=== PATIENT | male | born 1980 | race Caucasian/White ===

== ENCOUNTER 2016-06-03 17:20 | Emergency (ER) | payer BC, OTHER ==
--- NOTE | 2016-06-03 17:29 | ER Document Report ---
ED Medical Screen (RME) - General Stated Complaint: BILATERAL FEET PAIN Notes: Patient complains of rash to both feet for about 2 weeks. Has been told it is athletes feet, and someone else told him it's fire ant bites. Rash is painful. Has tried [id number] athlete's foot spray and powders. I have greeted and performed a rapid initial assessment of this patient. A comprehensive ED assessment and evaluation of the patient, analysis of test results and completion of the medical decision making process will be conducted by additional ED providers. TRAVEL OUTSIDE OF THE [place] IN LAST 30 DAYS: No - Related Data Allergies/Adverse Reactions: cephalexin monohydrate [From [employer]] Allergy (Unknown, Verified 12/19/15 17:00) acetaminophen [From [employer]] Allergy (Verified 12/19/15 17:00) chlorpheniramine [From [employer]] Allergy (Verified 12/19/15 17:00) dextromethorphan HBr [From [employer]] Allergy (Verified 12/19/15 17: 00) Past Medical History Pulmonary Medical History: Reports: Hx Bronchitis Denies: Hx Asthma, Hx Pneumonia - Immunizations Immunizations up to date: Yes Hx Diphtheria, Pertussis, Tetanus Vaccination: Yes - unk date Physical Exam - Vital signs Vitals: Temp Pulse Resp BP Pulse Ox 99.0 F 89 20 137/75 H 95 06/03/16 17:25 06/03/16 17:25 06/03/16 17:25 06/03/16 17:25 06/03/16 17:25 - Skin Notes: Patient showed pictures of rash which is red and scabbed. Slight edema apparent. Course - Vital Signs Vital signs: Temp Pulse Resp BP Pulse Ox 99.0 F 89 20 137/75 H 95 06/03/16 17:25 06/03/16 17:25 06/03/16 17:25 06/03/16 17:25 06/03/16 17:25
[2016-06-03] MEDS ORDERED: MUPIROCIN 2% OINTMENT 22 GM TP ONE (20:01)
--- NOTE | 2016-06-03 20:07 | ER Document Report ---
ED General - General Chief Complaint: Skin Problem Stated Complaint: BILATERAL FEET PAIN Notes: Patient is a 36-year-old male who presents with abrasions over the dorsal surface of his left foot. States he wears boots and that they rub on his feet but he became concerned when he began to have increasing pain to this area as well as some purulent drainage and spreading redness. He has not had any constitutional symptoms. Denies any fever. He has not seen his primary care doctor regarding today's concerns. He does describe the discomfort there is a dull, constant, burning pain. Nothing improves or worsens that pain. He denies any history of similar symptoms in the past TRAVEL OUTSIDE OF THE [place] IN LAST 30 DAYS: No - Related Data Allergies/Adverse Reactions: cephalexin monohydrate [From [employer]] Allergy (Unknown, Verified 06/03/16 17:26) acetaminophen [From [employer]] Allergy (Verified 06/03/16 17:26) chlorpheniramine [From [employer]] Allergy (Verified 06/03/16 17:26) dextromethorphan HBr [From [employer]] Allergy (Verified 06/03/16 17: 26) Past Medical History - General Information source: Patient - Social History Smoking Status: Never Smoker Chew tobacco use (# tins/day): No Frequency of alcohol use: None Drug Abuse: None Lives with: Family Family History: Arthritis, CAD, CVA, DM, Hyperlipidemia, Hypertension, Malignancy Patient has suicidal ideation: No Patient has homicidal ideation: No Pulmonary Medical History: Reports: Hx Bronchitis Denies: Hx Asthma, Hx Pneumonia Renal/ Medical History: Denies: Hx Peritoneal Dialysis - Immunizations Immunizations up to date: Yes Hx Diphtheria, Pertussis, Tetanus Vaccination: Yes - unk date Review of Systems - Review of Systems Notes: Constitutional: Negative for fever. HENT: Negative for sore throat. Eyes: Negative for visual changes. Cardiovascular: Negative for chest pain. Respiratory: Negative for shortness of breath. Gastrointestinal: Negative for abdominal pain, vomiting or diarrhea. Genitourinary: Negative for dysuria. Musculoskeletal: Negative for back pain. Skin: Positive for rash. Neurological: Negative for headaches, weakness or numbness. 10 point ROS negative except as marked above and in HPI. Physical Exam - Vital signs Vitals: Temp Pulse Resp BP Pulse Ox 99.0 F 89 20 137/75 H 95 06/03/16 17:25 06/03/16 17:25 06/03/16 17:25 06/03/16 17:25 06/03/16 17:25 Interpretation: Normal Notes: PHYSICAL EXAMINATION: GENERAL: Well-appearing, well-nourished and in no acute distress. HEAD: Atraumatic, normocephalic. EYES: sclera anicteric, conjunctiva are normal. ENT: Moist mucous membranes. NECK: Normal range of motion LUNGS: Normal work of breathing HEART: 2+ DP pulses bilaterally EXTREMITIES: no pitting or edema. No cyanosis. NEUROLOGICAL: No focal neurological deficits. Moves all extremities spontaneously and on command. PSYCH: Normal mood, normal affect. SKIN: Warm, Dry, normal turgor, superficial abrasions over the distal dorsal surface of the left foot with some mild surrounding erythema and crusting lesions. Course - Re-evaluation Re-evalutation: 06/03/16 20:02 Patient presents with skin abrasions over the dorsal surface just below the great toe and second toe. There appears to be a superimposed impetigo over this area. Patient will be started on mupirocin. Hygiene recommendations provided. At this time will discharge with return precautions and follow-up recommendations. Verbal discharge instructions given a the bedside and opportunity for questions given. Medication warnings reviewed. Patient is in agreement with this plan and has verbalized understanding of return precautions and the need for primary care follow-up in the next 24-72 hours. - Vital Signs Vital signs: Temp Pulse Resp BP Pulse Ox 98.5 F 77 17 125/75 99 06/03/16 20:10 06/03/16 20:10 06/03/16 20:10 06/03/16 20:10 06/03/16 20:10 Discharge - Discharge Clinical Impression: Impetigo Abrasion, left foot, initial encounter Qualifiers: Encounter type: initial encounter Qualified Code(s): S90.812A - Abrasion, left foot, initial encounter Condition: Good Disposition: HOME, SELF-CARE Additional Instructions: The rash is likely due to infection of your skin. You need to take the antibiotics as prescribed. Do not stop even if the rash goes away until you have completed all the antibiotics. Please return if you devlop spreading of the area of infection. You should also return if you develop fevers with temperature greater than 101, persistent vomiting, worsening pain, or have any other symptoms that are concerning to you. Prescriptions: Mupirocin 22 gm TP TID #22 oint..gm.
[2016-06-03 20:18] VITALS: BP 125/75
== END 2016-06-03 20:12 | disposition home or self-care (01) ==
LOC: ER 17:20
DX: S90.812A Abrasion, left foot, initial encounter (principal); L01.00 Impetigo, unspecified; X58.XXXA Exposure to other specified factors, initial encounter
CPT/HCPCS: 99283; J3490

== ENCOUNTER 2016-06-28 19:33 | Emergency (ER) | payer BC, OTHER ==
[2016-06-28 19:53] VITALS: BP 130/81
== END 2016-06-29 01:10 | disposition left against medical advice (07) ==
LOC: ER 19:33
DX: Z53.21 Procedure and treatment not carried out due to patient leaving prior to being seen by health care provider (principal)

== ENCOUNTER 2016-07-01 08:22 | Emergency (ER) | payer BC, OTHER ==
[2016-07-01] MEDS ORDERED: IBUPROFEN 800 MG TABLET PO ONE (08:49)
[2016-07-01] MEDS ORDERED: CLINDAMYCIN HCL 150 MG CAPSULE PO ONE (08:49)
--- NOTE | 2016-07-01 08:54 | ER Document Report ---
HPI - HPI Patient complains to provider of: dental pain Onset: Yesterday Onset/Duration: Gradual Quality of pain: Achy Pain Level: 5 Context: Patient reports mild cough for the past 6 days with a dental pain that started yesterday. Patient reports right-sided facial swelling that started today. No fever. Associated Symptoms: Nonproductive cough, Other - Dental pain. denies: Fever, Nausea, Sore throat Exacerbated by: Denies Relieved by: Denies Similar symptoms previously: Yes Recently seen / treated by doctor: No - ROS ROS below otherwise negative: Yes Systems Reviewed and Negative: Yes All other systems reviewed and negative - CONSTITUTIONAL Constitutional: DENIES: Fever - EENT EENT: DENIES: Sore Throat, Nasal Drainage-Clear Notes: Dental pain, facial swelling - CARDIOVASCULAR Cardiovascular: DENIES: Chest pain - RESPIRATORY Respiratory: REPORTS: Coughing. DENIES: Trouble Breathing - GASTROINTESTINAL Gastrointestinal: DENIES: Abdominal Pain, Nausea, Patient vomiting, Diarrhea - REPRODUCTIVE Reproductive: DENIES: : - MUSCULOSKELETAL Musculoskeletal: DENIES: Back Pain - DERM Skin Color: Normal Skin Problems: None Past Medical History - General Information source: Patient - Social History Smoking Status: Current Every Day Smoker Frequency of alcohol use: None Drug Abuse: None Occupation: garbage removal Lives with: Family Family History: Arthritis, CAD, CVA, DM, Hyperlipidemia, Hypertension, Malignancy Patient has suicidal ideation: No Patient has homicidal ideation: No - Medical History Medical History: Negative Pulmonary Medical History: Reports: Hx Bronchitis Denies: Hx Asthma, Hx Pneumonia Renal/ Medical History: Denies: Hx Peritoneal Dialysis Surgical Hx: Negative - Immunizations Immunizations up to date: Yes Hx Diphtheria, Pertussis, Tetanus Vaccination: Yes - unk date Vertical Provider Document - CONSTITUTIONAL Agree With Documented VS: Yes Exam Limitations: No Limitations General Appearance: WD/WN, No Apparent Distress - INFECTION CONTROL TRAVEL OUTSIDE OF THE [place] IN LAST 30 DAYS: No - HEENT HEENT: Atraumatic, Normocephalic. negative: Pharyngeal Exudate, Pharyngeal Tenderness, Pharyngeal Erythema, Tympanic Membrane Red, Tympanic Membrane Bulging Mouth Diagram: 1 - Widespread dental decay 2 - Tooth loose, and tender Notes: Subtle swelling to the right cheek area - NECK Neck: Normal Inspection, Supple - RESPIRATORY Respiratory: Breath Sounds Normal, No Respiratory Distress. negative: Rales, Rhonchi, Wheezing O2 Sat by Pulse Oximetry: 98 - CARDIOVASCULAR Cardiovascular: Regular Rate, Regular Rhythm, No Murmur - BACK Back: Normal Inspection - MUSCULOSKELETAL/EXTREMETIES Musculoskeletal/Extremeties: MAEW - NEURO Level of Consciousness: Awake, Alert, Appropriate Motor/Sensory: No Motor Deficit - DERM Integumentary: Warm, Dry, No Rash Course - Vital Signs Vital signs: Temp Pulse Resp BP Pulse Ox 99.2 F 71 16 141/78 H 98 07/01/16 08:25 07/01/16 08:25 07/01/16 08:25 07/01/16 08:25 07/01/16 08:25 Discharge - Discharge Clinical Impression: Toothache, Elevated blood pressure reading Upper respiratory infection Qualifiers: URI type: unspecified URI Qualified Code(s): J06.9 - Acute upper respiratory infection, unspecified Condition: Stable Disposition: HOME, SELF-CARE Instructions: Upper Respiratory Illness ([facility]), Oral Narcotic Medication ([facility]), Clindamycin ([facility]), Dentist, Dental Infection or Abscess ([facility]) Additional Instructions: Return immediately for any new or worsening symptoms Followup with your primary care provider, call tomorrow to make a followup appointment Your blood pressure was mildly elevated today recheck with her primary doctor in 1-2 days. Follow up with a dental care provider Prescriptions: Acetaminophen with Codeine [Acetaminophen-Cod #3 Tablet] 1 each PO Q6 PRN #15 tablet PRN Reason: Clindamycin HCl [Cleocin 300 mg Capsule] 300 mg PO TID #21 capsule Naproxen [Naprosyn 250 Nmg Tablet] 1 tab PO BID #14 tablet Forms: Return to Work Referrals: TUCKER BREWER MD [Primary Care Provider] - Follow up as needed
[2016-07-01 10:46] VITALS: BP 143/84
== END 2016-07-01 09:08 | disposition home or self-care (01) ==
LOC: ER 08:22
DX: K02.9 Dental caries, unspecified (principal); K08.89 Other specified disorders of teeth and supporting structures; J06.9 Acute upper respiratory infection, unspecified; R03.0 Elevated blood-pressure reading, without diagnosis of hypertension; R22.0 Localized swelling, mass and lump, head; R05 Cough; F17.200 Nicotine dependence, unspecified, uncomplicated
CPT/HCPCS: 99282

== ENCOUNTER 2016-10-04 16:58 | Emergency (ER) | payer BC, OTHER ==
[2016-10-04 17:10] VITALS: BP 140/75
[2016-10-04] MEDS ORDERED: PREDNISONE 20 MG TABLET PO ONE (18:34)
--- NOTE | 2016-10-04 18:37 | ER Document Report ---
HPI - HPI Patient complains to provider of: skin rash Onset: This morning Onset/Duration: Gradual Quality of pain: Burning Pain Level: 4 Context: Complains of pruritic skin rash that developed today. Patient states that yesterday he climbed a tree to cut it off of a friend's roof and it was covered in poison ariana. Associated Symptoms: Other - skin rash Exacerbated by: Denies Relieved by: Denies Similar symptoms previously: Yes Recently seen / treated by doctor: No - ROS ROS below otherwise negative: Yes Systems Reviewed and Negative: Yes All other systems reviewed and negative - CONSTITUTIONAL Constitutional: DENIES: Fever, Chills - REPRODUCTIVE Reproductive: DENIES: : - DERM Skin Color: Normal, Tuttle Skin Problems: Rash Past Medical History - General Information source: Patient - Social History Smoking Status: Current Every Day Smoker Frequency of alcohol use: None Drug Abuse: None Occupation: none Family History: Arthritis, CAD, CVA, DM, Hyperlipidemia, Hypertension, Malignancy Pulmonary Medical History: Reports: Hx Bronchitis Denies: Hx Asthma, Hx Pneumonia Renal/ Medical History: Denies: Hx Peritoneal Dialysis Surgical Hx: Negative - Immunizations Immunizations up to date: Yes Hx Diphtheria, Pertussis, Tetanus Vaccination: Yes - unk date Vertical Provider Document - CONSTITUTIONAL Agree With Documented VS: Yes Exam Limitations: No Limitations General Appearance: WD/WN, No Apparent Distress - INFECTION CONTROL TRAVEL OUTSIDE OF THE [place] IN LAST 30 DAYS: No - HEENT HEENT: Atraumatic, Normocephalic - NECK Neck: Normal Inspection, Supple - RESPIRATORY Respiratory: Breath Sounds Normal, No Respiratory Distress O2 Sat by Pulse Oximetry: 96 - CARDIOVASCULAR Cardiovascular: Regular Rate, Regular Rhythm - MUSCULOSKELETAL/EXTREMETIES Musculoskeletal/Extremeties: MAEW, FROM - NEURO Level of Consciousness: Awake, Alert, Appropriate Motor/Sensory: No Motor Deficit - DERM Integumentary: Warm, Dry, Rash - Diffuse erythematous maculopapular rash with vesicular lesions to bilateral upper extremities consistent with a contact dermatitis. Patient with scattered lesions to forehead and neck area Course - Re-evaluation Re-evalutation: 10/04/16 18:37 The patient has been informed that they may have pre-hypertension or hypertension based on a blood pressure reading in the emergency department. I recommend that patient call the primary care provider listed on their discharge instructions or a physician of their choice by this week to arrange follow-up for further evaluation of possible pre-hypertension or hypertension. - Vital Signs Vital signs: Temp Pulse Resp BP Pulse Ox 98.9 F 92 16 140/75 H 96 10/04/16 17:08 10/04/16 17:08 10/04/16 17:08 10/04/16 17:08 10/04/16 17:08 Discharge - Discharge Clinical Impression: Contact dermatitis Qualifiers: Contact dermatitis type: unspecified Contact dermatitis trigger: unspecified trigger Qualified Code(s): L25.9 - Unspecified contact dermatitis, unspecified cause Condition: Stable Disposition: HOME, SELF-CARE Instructions: Poison Ariana ([facility]), Steroid Medication, Antihistamines ([facility]) Additional Instructions: Return immediately for any new or worsening symptoms Followup with your primary care provider, call tomorrow to make a followup appointment Use [id number] poison ariana skin wash to cleanse your skin Prescriptions: Hydroxyzine HCl [Atarax 25 mg Tablet] 1 - 2 tab PO QID #25 tablet Prednisone [Deltasone 5 mg Tablet] 5 mg PO ASDIR PRN #100 tablet PRN Reason: Forms: Elevated Blood Pressure Referrals: [facility] [Provider Group] - Follow up as needed
== END 2016-10-04 19:10 | disposition home or self-care (01) ==
LOC: ER 16:58
DX: L23.7 Allergic contact dermatitis due to plants, except food (principal); F17.200 Nicotine dependence, unspecified, uncomplicated
CPT/HCPCS: 99282; J7512

== ENCOUNTER 2016-12-13 21:47 | Emergency (ER) | payer OTHER ==
--- NOTE | 2016-12-13 22:49 | RADIOLOGY REPORT (SQ) ---
EXAM DESCRIPTION: CHEST PA/LAT COMPLETED DATE/TIME: 12/13/2016 10:40 pm REASON FOR STUDY: cough COMPARISON: 01/15/2015 NUMBER OF VIEWS: Two view. TECHNIQUE: Frontal and lateral radiographic views of the chest acquired. LIMITATIONS: None. FINDINGS: LUNGS AND PLEURA: Peribronchial cuffing and interstitial changes. No consolidation, effus ion, or pneumothorax. MEDIASTINUM AND HILAR STRUCTURES: No masses. No contour abnormalities. HEART AND VASCULAR STRUCTURES: Heart normal in size and contour. No evidence for failure. BONES: No acute findings. HARDWARE: None in the chest. OTHER: No other significant finding. IMPRESSION: REACTIVE AIRWAY DISEASE VERSUS VIRAL SYNDROME. NO CONSOLIDATION. TECHNICAL DOCUMENTATION: JOB ID: [id number] [employer]- All Rights Reserved
--- NOTE | 2016-12-14 00:27 | ER Document Report ---
HPI - HPI Pain Level: 4 Notes: Patient is a 36-year-old male who presents ED complaining of a dry nonproductive cough, nasal congestion/discharge times about 4-5 days. Patient has not been using any [id number] meds for symptoms. He is still eating and drinking without any difficulties. Patient admits to smoking but denies any IV drug use. He denies any other significant past medical history. Denies any headache, fever, neck pain, sore throat, chest pain, palpitations, syncope, shortness of breath, wheeze, dyspnea, abdominal pain, nausea/vomiting/diarrhea, or rash. - ROS Notes: REVIEW OF SYSTEMS: CONSTITUTIONAL : Denies fever, chills, or sweats. Denies recent illness. EENT: see hpi, no eye complaints. CARDIOVASCULAR: Denies chest pain. Denies palpitations or racing or irregular heart beat. Denies ankle edema. RESPIRATORY: see hpi GASTROINTESTINAL: Denies abdominal pain or distention. Denies nausea, vomiting , or diarrhea. Denies blood in vomitus, stools, or per rectum. Denies black, tarry stools. Denies constipation. GENITOURINARY: Denies difficulty urinating, painful urination, burning, frequency, blood in urine, or discharge. MUSCULOSKELETAL: Denies back or neck pain or stiffness. Denies joint pain or swelling. SKIN: Denies rash, lesions or sores. NEUROLOGICAL: Denies confusion or altered mental status. Denies passing out or loss of consciousness. Denies dizziness or lightheadedness. Denies headache. Denies weakness or paralysis or loss of use of either side. Denies problems with gait or speech. Denies sensory loss, numbness, or tingling. ALL OTHER SYSTEMS REVIEWED AND NEGATIVE. Dictation was performed using [employer] voice recognition software - CARDIOVASCULAR Cardiovascular: DENIES: Chest pain - REPRODUCTIVE Reproductive: DENIES: : - DERM Skin Color: Normal Past Medical History - Social History Smoking Status: Current Every Day Smoker Family History: Arthritis, CAD, CVA, DM, Hyperlipidemia, Hypertension, Malignancy Patient has suicidal ideation: No Patient has homicidal ideation: No Pulmonary Medical History: Reports: Hx Bronchitis Denies: Hx Asthma, Hx Pneumonia Renal/ Medical History: Denies: Hx Peritoneal Dialysis Surgical Hx: Negative - Immunizations Immunizations up to date: Yes Hx Diphtheria, Pertussis, Tetanus Vaccination: Yes - unk date Vertical Provider Document - CONSTITUTIONAL Agree With Documented VS: Yes Notes: PHYSICAL EXAMINATION: GENERAL: Well-appearing, well-nourished and in no acute distress. A&Ox4 HEAD: Atraumatic, normocephalic. EYES: Pupils equal round and reactive to light, extraocular movements intact, sclera anicteric, conjunctiva are normal. ENT: EAC clear b/l. TM's intact b/l without erythema, fluid, or perforation. Nares patent and with clear discharge. oropharynx clear without exudates. No tonsilar hypertrophy or erythema. Moist mucous membranes. No sinus tenderness. Uvula midline. No palatine shift. No tongue protrusion. NECK: Normal range of motion, supple without lymphadenopathy. No rigidity/ meningismus. LUNGS: Breath sounds clear to auscultation bilaterally and equal. No wheezes rales or rhonchi. HEART: Regular rate and rhythm without murmurs, rubs, gallops. Extremities: No cyanosis, clubbing, or edema b/l. Peripheral pulses 2+. Capillary refill less than 3 seconds. NEUROLOGICAL: Cranial nerves grossly intact. Normal speech, normal gait. Normal sensory, motor exams PSYCH: Normal mood, normal affect. SKIN: Warm, Dry, normal turgor, no rashes or lesions noted. - INFECTION CONTROL TRAVEL OUTSIDE OF THE [place] IN LAST 30 DAYS: No - RESPIRATORY O2 Sat by Pulse Oximetry: 96 Course - Re-evaluation Re-evalutation: 12/14/16 01:37 Patient is an afebrile, well-hydrated, 36-year-old male who presents the ED with acute URI, suspect viral at this time. Vitals are stable. PE is otherwise unremarkable. Chest x-ray showed reactive airway disease versus viral findings. Low suspicion/risk for any ACS, PE, pneumothorax, dissection, pericarditis, sepsis, respiratory compromise. Patient is aware that his condition can change from initial presentation and he needs to monitor symptoms closely and seek medical attention with any acute changes. I will send him home with a prescription for a prednisone taper, Tessalon, and inhaler. Conservative measures for symptoms otherwise. Recheck with your PCM in 2-3 days. Return to the ED with any worsening/concerning symptoms otherwise as reviewed discharge. Patient is in agreement. - Vital Signs Vital signs: Temp Pulse Resp BP Pulse Ox 99.1 F 79 18 117/78 96 12/13/16 22:25 12/13/16 22:25 12/13/16 22:25 12/13/16 22:25 12/13/16 22:25 Discharge - Discharge Clinical Impression: URI (upper respiratory infection) Qualifiers: URI type: unspecified URI Qualified Code(s): J06.9 - Acute upper respiratory infection, unspecified Condition: Stable Disposition: HOME, SELF-CARE Instructions: Upper Respiratory Illness ([facility]), Viral Syndrome ([facility]) Additional Instructions: Maintain adequate fluid intake Take meds as directed tylenol/ibuprofen as needed over the counter cold medication as needed for symptoms Humidified air may help F/u: with your PCM in 2-3 days for a recheck Return to the ED with any fever, worsening pain, chest pain, palpitations, syncope, worsening VALLECILLO, neck pain/stiffness, shortness of breath, wheezing, drooling, trouble swallowing/breathing, abdominal pain, n/v/d, rash, or worsening/concerning symptoms otherwise. Prescriptions: Benzonatate [Tessalon Perle 100 mg Capsule] 100 mg PO Q8HP PRN #30 cap PRN Reason: Albuterol Sulfate [Proair HFA Inhalation Aerosol 8.5 gm MDI] 1 - 2 puff IH Q4H PRN #1 mdi PRN Reason: Prednisone [Deltasone 10 mg Tablet] 10 mg PO ASDIR PRN #21 tablet PRN Reason: Forms: Smoking Cessation Education Referrals: [facility] [Provider Group] - Follow up as needed [facility] [Provider Group] - Follow up as needed
[2016-12-14 00:46] VITALS: BP 137/73
== END 2016-12-14 00:40 | disposition home or self-care (01) ==
LOC: ER 21:47
DX: J06.9 Acute upper respiratory infection, unspecified (principal); R05 Cough; R09.81 Nasal congestion; R09.89 Other specified symptoms and signs involving the circulatory and respiratory systems; F17.200 Nicotine dependence, unspecified, uncomplicated
CPT/HCPCS: 71020; 99283

== ENCOUNTER 2017-05-16 09:27 | Emergency (ER) | payer SELFPAY ==
[2017-05-16 09:33] VITALS: BP 130/68
[2017-05-16] MEDS ORDERED: OXYCODONE-ACETAMINOPHEN 5-325 MG TABLET PO ONE (10:27)
[2017-05-16] MEDS ORDERED: CLINDAMYCIN HCL 150 MG CAPSULE PO ONE (10:27)
--- NOTE | 2017-05-16 10:29 | ER Document Report ---
HPI - HPI Patient complains to provider of: Dental pain Onset/Duration: Gradual Quality of pain: Achy Pain Level: 3 Context: Patient presents complaining of dental pain for the past 2 days. Patient has widespread dental decay to upper jaw. Patient states that he bumped his tooth yesterday and had noticed marked increase in tenderness. Patient denies any fever. Patient does report subtle left upper cheek swelling. Associated Symptoms: Other - Dental pain. denies: Fever Exacerbated by: Denies Relieved by: Denies Similar symptoms previously: Yes Recently seen / treated by doctor: No - ROS ROS below otherwise negative: Yes Systems Reviewed and Negative: Yes All other systems reviewed and negative - CONSTITUTIONAL Constitutional: DENIES: Fever, Chills - EENT EENT: DENIES: Sore Throat, Ear Pain, Eye problems Notes: Dental pain - RESPIRATORY Respiratory: DENIES: Trouble Breathing, Coughing - GASTROINTESTINAL Gastrointestinal: DENIES: Nausea, Patient vomiting - DERM Skin Color: Normal Skin Problems: None Past Medical History - General Information source: Patient - Social History Smoking Status: Current Every Day Smoker Chew tobacco use (# tins/day): No Smoking Education Provided: Yes Frequency of alcohol use: None Drug Abuse: None Occupation: Sanitation Family History: Arthritis, CAD, CVA, DM, Hyperlipidemia, Hypertension, Malignancy Patient has suicidal ideation: No Patient has homicidal ideation: No - Medical History Medical History: Negative Pulmonary Medical History: Reports: Hx Bronchitis Denies: Hx Asthma, Hx Pneumonia Renal/ Medical History: Denies: Hx Peritoneal Dialysis Surgical Hx: Negative - Immunizations Immunizations up to date: Yes Hx Diphtheria, Pertussis, Tetanus Vaccination: Yes - unk date Vertical Provider Document - CONSTITUTIONAL Agree With Documented VS: Yes Exam Limitations: No Limitations General Appearance: WD/WN, No Apparent Distress - INFECTION CONTROL TRAVEL OUTSIDE OF THE [place] IN LAST 30 DAYS: No - HEENT HEENT: Atraumatic, Normocephalic Mouth Diagram: 1 - Widespread decay, gingival inflammation tenderness - NECK Neck: Normal Inspection, Supple. negative: Lymphadenopathy-Left, Lymphadenopathy-Right - RESPIRATORY Respiratory: Breath Sounds Normal, No Respiratory Distress O2 Sat by Pulse Oximetry: 96 - CARDIOVASCULAR Cardiovascular: Regular Rate, Regular Rhythm, No Murmur - MUSCULOSKELETAL/EXTREMETIES Musculoskeletal/Extremeties: MAEW - NEURO Level of Consciousness: Awake, Alert, Appropriate Motor/Sensory: No Motor Deficit - DERM Integumentary: Warm, Dry, No Rash Course - Re-evaluation Re-evalutation: 05/16/17 10:26 Controlled substance database reviewed - Vital Signs Vital signs: Temp Pulse Resp BP Pulse Ox 98.8 F 95 18 130/68 H 96 05/16/17 09:29 05/16/17 09:29 05/16/17 09:29 05/16/17 09:29 05/16/17 09:29 Discharge - Discharge Clinical Impression: Infected dental caries Condition: Stable Disposition: HOME, SELF-CARE Instructions: Clindamycin ([facility]), Dental Infection or Abscess ([facility]), Oral Narcotic Medication ([facility]), Toothache ([facility]) Additional Instructions: Return immediately for any new or worsening symptoms Followup with your primary care provider, call tomorrow to make a followup appointment Follow-up with a dental care provider Prescriptions: Clindamycin HCl [Cleocin 300 mg Capsule] 300 mg PO TID #21 capsule Naproxen [Naprosyn 250 Nmg Tablet] 1 tab PO BID #14 tablet Tramadol HCl [Ultram 50 mg Tablet] 50 mg PO ASDIR PRN #12 tablet PRN Reason: Forms: Smoking Cessation Education, Return to Work Referrals: [facility] [Provider Group] - Follow up as needed
== END 2017-05-16 10:42 | disposition home or self-care (01) ==
LOC: ER 09:27
DX: K04.7 Periapical abscess without sinus (principal); K02.9 Dental caries, unspecified; K05.10 Chronic gingivitis, plaque induced; K08.89 Other specified disorders of teeth and supporting structures; F17.200 Nicotine dependence, unspecified, uncomplicated
CPT/HCPCS: 99282

== ENCOUNTER 2017-08-05 19:57 | Emergency (ER) | payer SELFPAY ==
--- NOTE | 2017-08-05 20:08 | ER Document Report ---
ED Medical Screen (RME) - General Chief Complaint: Testicular Pain Stated Complaint: TESTICULAR PAIN Time Seen by Provider: 08/05/17 20:01 Mode of Arrival: Ambulatory Information source: Patient Notes: 37-year-old male presents with complaints of left testicular pain that started just prior to arrival, patient denies any previous similar episodes denies any fevers or chills denies any burning on urination discharge patient's girlfriend did just get at present Patient denies any trauma or recent heavy lifting I have greeted and performed a rapid initial assessment of this patient. A comprehensive ED assessment and evaluation of the patient, analysis of test results and completion of the medical decision making process will be conducted by additional ED providers. PHYSICAL EXAMINATION: GENERAL: Well-appearing, well-nourished and in no acute distress. HEAD: Atraumatic, normocephalic. EYES: Pupils equal round extraocular movements intact, conjunctiva are normal. ENT: Nares patent NECK: Normal range of motion LUNGS: No respiratory distress Musculoskeletal: Normal range of motion cremaster reflex is intact on the right is difficult to know on the left there is tenderness upon palpation of the epididymis on the left NEUROLOGICAL: Normal speech, normal gait. PSYCH: Normal mood, normal affect. SKIN: Warm, Dry, normal turgor, no rashes or lesions noted. TRAVEL OUTSIDE OF THE [place] IN LAST 30 DAYS: No - Related Data Allergies/Adverse Reactions: cephalexin monohydrate [From [employer]] Allergy (Unknown, Verified 08/05/17 19:57) acetaminophen [From [employer]] Allergy (Verified 08/05/17 19:57) chlorpheniramine [From [employer]] Allergy (Verified 08/05/17 19:57) dextromethorphan HBr [From [employer]] Allergy (Verified 08/05/17 19: 57) Past Medical History Pulmonary Medical History: Reports: Hx Bronchitis Denies: Hx Asthma, Hx Pneumonia Renal/ Medical History: Denies: Hx Peritoneal Dialysis - Immunizations Immunizations up to date: Yes Hx Diphtheria, Pertussis, Tetanus Vaccination: Yes - unk date
--- NOTE | 2017-08-05 21:14 | ER Document Report ---
ED General - General Chief Complaint: Testicular Pain Stated Complaint: TESTICULAR PAIN Time Seen by Provider: 08/05/17 20:01 Mode of Arrival: Ambulatory TRAVEL OUTSIDE OF THE [place] IN LAST 30 DAYS: No - HPI Notes: Patient is a 37-year-old male with no significant past medical history who presents to the ED complaining of left testicular pain 3 hours without known precipitating event. Patient states that the pain does not radiate and hurts when he ambulates or if you touch it. Patient states that he is otherwise been eating and drinking without difficulties. He is urinating normally and having normal bowel movements. He has not noticed any rash, redness, swelling, or other lesions. No urethral discharge. Denies any headache, fever, neck pain, URI, sore throat, chest pain, palpitations, syncope, cough, shortness of breath , wheeze, dyspnea, abdominal pain, nausea/vomiting/diarrhea, urinary retention, dysuria, hematuria, back pain, loss of control of bowel or bladder, numbness/ tingling, saddle anesthesia, muscle paralysis/weakness, or rash. - Related Data Allergies/Adverse Reactions: cephalexin monohydrate [From [employer]] Allergy (Unknown, Verified 08/05/17 19:57) acetaminophen [From [facility]] Allergy (Verified 08/05/17 19:57) chlorpheniramine [From [facility]] Allergy (Verified 08/05/17 19:57) dextromethorphan HBr [From [facility]] Allergy (Verified 08/05/17 19: 57) Past Medical History - General Information source: Patient - Social History Smoking Status: Current Every Day Smoker Chew tobacco use (# tins/day): No Frequency of alcohol use: Occasional Drug Abuse: None Family History: Arthritis, CAD, CVA, DM, Hyperlipidemia, Hypertension, Malignancy Patient has suicidal ideation: No Patient has homicidal ideation: No Pulmonary Medical History: Reports: Hx Bronchitis Denies: Hx Asthma, Hx Pneumonia Renal/ Medical History: Denies: Hx Peritoneal Dialysis - Immunizations Immunizations up to date: Yes Hx Diphtheria, Pertussis, Tetanus Vaccination: Yes - unk date Review of Systems - Review of Systems -: Yes All other systems reviewed and negative Physical Exam - Vital signs Vitals: Temp Pulse Resp BP Pulse Ox 98.7 F 78 18 134/75 H 96 08/05/17 20:04 08/05/17 20:04 08/05/17 20:04 08/05/17 20:04 08/05/17 20:04 - Notes Notes: PHYSICAL EXAMINATION: GENERAL: Well-appearing, well-nourished and in no acute distress. LUNGS: Breath sounds clear to auscultation bilaterally and equal. No wheezes rales or rhonchi. HEART: Regular rate and rhythm without murmurs, rubs, gallops. ABDOMEN: Soft, nontender, nondistended abdomen. No guarding, no rebound. No masses appreciated. Normal bowel sounds present. No CVA tenderness bilaterally. : Circumcised. No urethral discharge. No obvious erythema, swelling, lesions , or ulcerations/rash. No obvious adenopathy. No transverse lie. Cremasteric reflex intact b/l. + tenderness to palp of the left testicle and epididymal area. Extremities: No cyanosis, clubbing, or edema b/l. Peripheral pulses 2+. Capillary refill less than 3 seconds. NEUROLOGICAL: Normal speech, normal gait. Normal sensory, motor exams PSYCH: Normal mood, normal affect. SKIN: Warm, Dry, normal turgor, no rashes or lesions noted. Course - Re-evaluation Re-evalutation: 08/05/17 23:46 Patient is an afebrile, well-hydrated, 37-year-old male who presents to the ED with left testicular pain and epididymitis. Vitals are acceptable. PE is otherwise unremarkable. Urinalysis, chlamydia/gonorrhea tests are negative. Urine culture pending. Scrotal ultrasound was unremarkable for any acute pathology aside from a small epididy. cyst and b/l varicoceles. Patient has no other significant tachycardia, tachypnea, or hypoxia. He is tolerating p.o. without any difficulties. No other labs or imaging warranted at this time based on H&P. I did review this with Dr. Fierro. I will send him home with a Rx for doxy. Conservative measures otherwise for symptoms. Patient's abdomen is otherwise soft and nontender. Low suspicion/risk for acute appendicitis, bowel obstruction, acute cholecystitis, perforated diverticulitis, incarcerated hernia, pancreatitis, perforated ulcer, peritonitis, sepsis, testicular torsion , or other systemic emergent condition at this time. Patient is aware that his condition can change from initial presentation and he needs to monitor symptoms closely and seek medical attention if any acute changes. Recheck with PCM in 2- 3 days. Consider consult with a urologist. Return to the ED with any worsening /concerning symptoms otherwise as reviewed in discharge. Patient is in agreement. - Vital Signs Vital signs: Temp Pulse Resp BP Pulse Ox 98.7 F 78 18 134/75 H 96 08/05/17 20:04 08/05/17 20:04 08/05/17 20:04 08/05/17 20:04 08/05/17 20:04 - Laboratory Laboratory results interpreted by me: 08/05/17 23:12 Urine Urobilinogen 2.0 H Discharge - Discharge Clinical Impression: Left testicular pain, Epididymal pain Condition: Stable Disposition: HOME, SELF-CARE Instructions: Testicular Pain ([facility]), Doxycycline ([facility]) Additional Instructions: Push fluids (i.e. water, cranberry juice) Proper hygenic technique Keep the skin clean Tylenol/ibuprofen Take medications as directed F/u with your PCM in 3-5 days for a recheck Consider consult with a Urologist for ongoing/worsening symptoms. Return to the ED with any worsening symptoms and/or development of fever, headache, chest pain, palpitations, syncope, shortness of breath, trouble breathing, abdominal pain, n/v/d, blood in stool/urine, loss of control of bowel /bladder, urinary retention, or other worsening symptoms that are concerning to you. Prescriptions: Doxycycline Hyclate 100 mg PO BID #20 capsule Naproxen 500 mg PO BID PRN #30 tablet PRN Reason: Forms: Elevated Blood Pressure, Smoking Cessation Education Referrals: EUGENIA SUBRAMANIAN II, MD [[facility]ST[facility]] - Follow up as needed
--- NOTE | 2017-08-05 21:34 | RADIOLOGY REPORT (SQ) ---
EXAM DESCRIPTION: U/S SCROTUM W/DOPPLER COMPLETED DATE/TIME: 08/05/2017 9:10 pm REASON FOR STUDY: left testicular pain COMPARISON: None. TECHNIQUE: Static and realtime rodriges scale imaging of the scrotum and testes. Selected color Doppler and spectral images recorded to document blood flow. LIMITATIONS: None. FINDINGS: RIGHT: TESTICLE: Normal size. Normal echotexture. Normal blood flow. No mass. EPIDIDYMIS: 4 mm cyst. HYDROCELE OR VARICOCELE: Small varicocele. HERNIA OR EXTRA-TESTICULAR MASS: No. OTHER: No other significant finding. LEFT: TESTICLE: Normal size. Normal echotexture. Normal blood flow. No mass. EPIDIDYMIS: Normal. HYDROCELE OR VARICOCELE: Small varicocele. HERNIA OR EXTRA-TESTICULAR MASS: No. OTHER: No other significant finding. IMPRESSION: Small varicoceles. No evidence of testicular mass or torsion. TECHNICAL DOCUMENTATION: JOB ID: [id number] [employer]- All Rights Reserved Reading location - IP/workstation name: [email or web address]
[2017-08-05 21:53] LABS: CHLAM PCR NOT DETECTED (NOT DETECT); GON PCR NOT DETECTED (NOT DETECT)
[2017-08-05 23:23] LABS: APPEARANCE,URINE CLEAR; BILIRUBIN,URINE NEGATIVE (NEGATIVE); COLOR,URINE YELLOW; GLUCOSE, URINE NEGATIVE (NEGATIVE); KETONES,URINE NEGATIVE (NEGATIVE); LEUKOCYTE ESTERASE,URINE NEGATIVE (NEGATIVE); NITRITE,URINE NEGATIVE (NEGATIVE); PROTEIN,URINE NEGATIVE (NEGATIVE); URINE SPECIFIC GRAVITY 1.014
[2017-08-05] MEDS ORDERED: NAPROXEN 250 MG TABLET PO ONE (23:51)
[2017-08-06 00:17] VITALS: BP 112/78
== END 2017-08-06 00:16 | disposition home or self-care (01) ==
LOC: ER 19:57
DX: N45.1 Epididymitis (principal); N50.3 Cyst of epididymis; I86.1 Scrotal varices; N50.812 Left testicular pain; F17.200 Nicotine dependence, unspecified, uncomplicated; Z88.1 Allergy status to other antibiotic agents; Z88.6 Allergy status to analgesic agent; Z88.8 Allergy status to other drugs, medicaments and biological substances
CPT/HCPCS: 36415; 76870; 81001; 87086; 87491; 87591; 93976; 99284

== ENCOUNTER 2017-11-07 23:37 | Emergency (ER) | payer SELFPAY ==
[2017-11-08] MEDS ORDERED: ONDANSETRON 4 MG TAB.RAPDIS PO ONE (01:41)
--- NOTE | 2017-11-08 01:41 | ER Document Report ---
ED Medical Screen (RME) - General Chief Complaint: Abdominal Pain Stated Complaint: ABDOMINAL PAIN Time Seen by Provider: 11/08/17 01:38 TRAVEL OUTSIDE OF THE [place] IN LAST 30 DAYS: No - HPI Notes: 11/08/17 01:38 Patient is a 37-year-old male no significant past medical history who presents to the ED complaining of weakness, body ache, rash, intermittent generalized abdominal discomfort, nausea without vomiting, occasional headache. Patient states that the body ache and weakness as well as the abdominal discomfort started over the last 1-2 days. Patient states he developed a rash about a week ago. [place] 2 [place]. Patient is not aware of an obvious tick bite, but states that he does have a larger red spot to his left lower leg than the other rash that does have a somewhat darker center without bull's-eye appearance. He is able to eat and drink. Denies any headache, fever, URI, sore throat, chest pain, palpitations, syncope , cough, shortness of breath, wheeze, dyspnea, vomiting/diarrhea, urinary retention, dysuria, hematuria, loss of control of bowel or bladder, numbness/ tingling, saddle anesthesia, muscle paralysis. I have treated and performed a rapid initial assessment of this patient. A comprehensive ED assessment and evaluation of the patient, analysis of test results and completion of medical decision making process will be conducted by additional ED providers. PHYSICAL EXAMINATION: GENERAL: Well-appearing, well-nourished and in no acute distress. A&Ox4. Answers questions appropriately. LUNGS: Breath sounds clear to auscultation bilaterally and equal. No wheezes rales or rhonchi. HEART: Regular rate and rhythm without murmurs, rubs, gallops. ABDOMEN: Soft, nondistended abdomen. No guarding, no rebound. Normal bowel sounds present. No CVA tenderness bilaterally. + mild generalized tenderness ( cannot elicit thorough abd exam w/o table, however). Extremities: No cyanosis, clubbing, or edema b/l. NEUROLOGICAL: Normal speech, normal gait. PSYCH: Normal mood, normal affect. Skin: maculopapular rash to the trunk/extremities. + blanching. Non-tender. - Related Data Allergies/Adverse Reactions: cephalexin monohydrate [From [employer]] Allergy (Unknown, Verified 08/05/17 19:57) acetaminophen [From [employer] [facility]] Allergy (Verified 08/05/17 19:57) chlorpheniramine [From [employer] [facility]] Allergy (Verified 08/05/17 19:57) dextromethorphan HBr [From [employer] [facility]] Allergy (Verified 08/05/17 19: 57) Past Medical History - Social History Chew tobacco use (# tins/day): No Frequency of alcohol use: Occasional Drug Abuse: None Pulmonary Medical History: Reports: Hx Bronchitis Denies: Hx Asthma, Hx Pneumonia Renal/ Medical History: Denies: Hx Peritoneal Dialysis - Immunizations Immunizations up to date: Yes Hx Diphtheria, Pertussis, Tetanus Vaccination: Yes - unk date Physical Exam - Vital signs Vitals: Temp Pulse Resp BP Pulse Ox 98.5 F 87 18 140/77 H 92 11/07/17 23:40 11/07/17 23:40 11/07/17 23:40 11/07/17 23:40 11/07/17 23:40 Course - Vital Signs Vital signs: Temp Pulse Resp BP Pulse Ox 98.5 F 87 18 140/77 H 92 11/07/17 23:40 11/07/17 23:40 11/07/17 23:40 11/07/17 23:40 11/07/17 23:40
[2017-11-08 02:16] LABS: ABSOLUTE BASOPHILS # (AUTO) 0.1 10^3/uL (0.0-0.2); ABSOLUTE EOSINOPHILS # (AUTO) 0.7 10^3/uL (0.0-0.6); ABSOLUTE LYMPHOCYTES (AUTO) 2.7 10^3/uL (0.5-4.7); ABSOLUTE MONOCYTES (AUTO) 1.1 10^3/uL (0.1-1.4); ABSOLUTE NEUT (AUTO) 9.6 10^3/uL (1.7-8.2); BASOPHILS % (AUTO) 0.9 % (0-2); EOSINOPHILS % (AUTO) 5.1 % (0-6); HEMATOCRIT 45.8 % (37.9-51.0); HEMOGLOBIN 15.2 g/dL (13.5-17.0); LYMPHOCYTES % (AUTO) 18.7 % (13-45); MEAN CORPUSCULAR HEMOGLOBIN 29.6 pg (27.0-33.4); MEAN CORPUSCULAR HGB CONC 33.2 g/dL (32.0-36.0); MEAN CORPUSCULAR VOLUME 89 fl (80-97); MONOCYTES % (AUTO) 7.4 % (3-13); PLATELET COUNT 313 10^3/uL (150-450); RED BLOOD COUNT 5.13 10^6/uL (4.35-5.55); RED CELL DISTRIBUTION WIDTH 13.5 % (11.5-14.0); SEGMENTED NEUTROPHILS % (AUTO) 67.9 % (42-78); TOTAL CELLS COUNTED % (AUTO) 100 %; WHITE BLOOD COUNT 14.2 10^3/uL (4.0-10.5)
[2017-11-08 02:26] LABS: ALANINE AMINOTRANSFERASE 27 U/L (21-72); ALBUMIN 4.9 g/dL (3.5-5.0); ALKALINE PHOSPHATASE 75 U/L (38-126); ANION GAP 12 (5-19); ASPARTATE AMINO TRANSFERASE 20 U/L (17-59); BILIRUBIN,DIRECT 0.3 mg/dL (0.0-0.4); BILIRUBIN,TOTAL 0.4 mg/dL (0.2-1.3); BLOOD UREA NITROGEN 16 mg/dL (7-20); CARBON DIOXIDE 28 mmol/L (22-30); CHLORIDE 103 mmol/L (98-107); GLUCOSE 96 mg/dL (75-110); LIPASE 45.8 U/L (23-300); POTASSIUM 4.3 mmol/L (3.6-5.0); SODIUM 142.5 mmol/L (137-145); TOTAL PROTEIN 7.8 g/dL (6.3-8.2)
[2017-11-08 03:09] LABS: APPEARANCE,URINE CLOUDY; BILIRUBIN,URINE NEGATIVE (NEGATIVE); CALCIUM OXALATE CRYSTALS,URINE RARE /HPF; COLOR,URINE YELLOW; GLUCOSE, URINE NEGATIVE (NEGATIVE); KETONES,URINE NEGATIVE (NEGATIVE); LEUKOCYTE ESTERASE,URINE NEGATIVE (NEGATIVE); NITRITE,URINE NEGATIVE (NEGATIVE); PROTEIN,URINE NEGATIVE (NEGATIVE); URINE SPECIFIC GRAVITY 1.024
[2017-11-08] MEDS ORDERED: DOXYCYCLINE HYCLATE 100 MG TABLET PO ONE (03:57)
--- NOTE | 2017-11-08 04:18 | ER Document Report ---
ED General - General Chief Complaint: Abdominal Pain Stated Complaint: ABDOMINAL PAIN Time Seen by Provider: 11/08/17 01:38 TRAVEL OUTSIDE OF THE [place] IN LAST 30 DAYS: No - HPI Patient complains to provider of: Body aches Onset: Other - This 37-year-old otherwise healthy man presents for evaluation of 1 day of generalized body aches, headache, fever a couple episodes of emesis and now a rash most notable on his chest and then his back. He is not take anything try and help with this, nothing is seemed to make it any better time seems to be making it worse. Is never had anything like this in the past. Denies any chest pain shortness of breath loss of consciousness or dizziness. - Related Data Allergies/Adverse Reactions: cephalexin monohydrate [From [email or web address]] Allergy (Unknown, Verified 11/08/17 04:28) acetaminophen [From [employer]] Allergy (Verified 11/08/17 04:28) chlorpheniramine [From [employer]] Allergy (Verified 11/08/17 04:28) dextromethorphan HBr [From [employer]] Allergy (Verified 11/08/17 04: 28) Past Medical History - General Information source: Patient - Social History Smoking Status: Current Every Day Smoker Chew tobacco use (# tins/day): No Frequency of alcohol use: Occasional Drug Abuse: None Family History: Arthritis, CAD, CVA, DM, Hyperlipidemia, Hypertension, Malignancy Patient has suicidal ideation: No Patient has homicidal ideation: No Pulmonary Medical History: Reports: Hx Bronchitis Denies: Hx Asthma, Hx Pneumonia Renal/ Medical History: Denies: Hx Peritoneal Dialysis - Immunizations Immunizations up to date: Yes Hx Diphtheria, Pertussis, Tetanus Vaccination: Yes - unk date Review of Systems - Review of Systems -: Yes All other systems reviewed and negative Physical Exam - Vital signs Vitals: Temp Pulse Resp BP Pulse Ox 98.5 F 87 18 140/77 H 92 11/07/17 23:40 11/07/17 23:40 11/07/17 23:40 11/07/17 23:40 11/07/17 23:40 - General General appearance: Appears well In distress: None - HEENT Head: Normocephalic Eyes: Normal Conjunctiva: Normal Cornea: Normal Extraocular movements intact: Yes Eyelashes: Normal Pupils: PERRL - Respiratory Respiratory status: No respiratory distress Chest status: Nontender Breath sounds: Normal Chest palpation: Normal - Cardiovascular Rhythm: Regular Heart sounds: Normal auscultation Murmur: No - Abdominal Inspection: Normal Distension: No distension Tenderness: Nontender - Back Back: Normal - Extremities General upper extremity: Normal inspection, Nontender, Normal ROM, Normal strength General lower extremity: Normal inspection, Nontender, Normal ROM, Normal strength, Normal weight bearing - Neurological Neuro grossly intact: Yes Cognition: Normal Orientation: AAOx4 [place] Coma Scale Eye Opening: Spontaneous Tricia Coma Scale Verbal: Oriented [place] Coma Scale Motor: Obeys Commands Tricia Coma Scale Total: 15 Speech: Normal Cranial nerves: Normal Cerebellar coordination: Normal Motor strength normal: LUE, RUE, LLE, RLE 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 Have a concern that this patient may be developing symptoms suggestive of [place] spotted fever given his nonspecific complaints in the setting of a tick bite. He has a benign neurologic examination and notes otherwise well-appearing, he is ambulatory without assistance. Based on laboratory evaluation the patient does demonstrate a modest leukocytosis without any other obvious signs of infection. His abdominal examination is benign. We will plan for treatment utilizing doxycycline presumptively for possible tickborne illness. Plan will be for patient be discharged with return precautions and expectant management he is okay with this plan at this time. - Vital Signs Vital signs: Temp Pulse Resp BP Pulse Ox 97.8 F 72 14 128/73 H 98 11/08/17 03:04 11/08/17 03:04 11/08/17 03:04 11/08/17 03:04 11/08/17 03:04 - Laboratory Result Diagrams: 11/08/17 01:50 11/08/17 01:50 Laboratory results interpreted by me: 11/08/17 11/08/17 01:50 01:50 WBC 14.2 H Absolute Neutrophils 9.6 H Absolute Eosinophils 0.7 H Urine Urobilinogen 2.0 H Discharge - Discharge Clinical Impression: [place] spotted fever Condition: Good Disposition: HOME, SELF-CARE Instructions: Tick Bites ([facility]) Additional Instructions: You were seen today in the emergency department for your tick bite, rash, and body aches. It is possible that she had [place] spotted fever, you have been given a prescription for doxycycline. Using along with the nausea medicine as necessary to treat your infection. Return for worsening fevers or chills, worsening headaches, inability to eat or drink or other symptoms. Prescriptions: Doxycycline Hyclate 100 mg PO BID #14 capsule Forms: Return to Work
[2017-11-08 05:32] VITALS: BP 119/65
== END 2017-11-08 05:35 | disposition home or self-care (01) ==
LOC: ER 23:37
DX: A77.0 Spotted fever due to Rickettsia rickettsii (principal)
CPT/HCPCS: 99284; 36415; 83690; 85025; 80053; 81001; S0119

== ENCOUNTER 2018-05-02 12:20 | Emergency (ER) | payer SELFPAY ==
[2018-05-02 12:25] VITALS: BP 108/58
[2018-05-02] MEDS ORDERED: KETOROLAC TROMETHAMINE 60 MG/2 ML SDV IM ONE (12:46)
--- NOTE | 2018-05-02 12:51 | ER Document Report ---
HPI - HPI Time Seen by Provider: 05/02/18 12:40 Pain Level: 3 Notes: Patient is a 38-year-old male with no significant past medical history who presents to the emergency department complaining of right lateral thigh and lateral posterior thigh pain status post possible injury while at work today. 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 Patient does not recall one particular incident that precipitated his pain, but he started noticing the pain when he was going up and down from the vehicle. Patient states that he did take some Motrin with minimal relief. The pain does not radiate. Denies any prolonged immobilization, distance travel, recent surgery/trauma, personal cancer history, hormone use, or previous DVT/PE or family history of. Denies any headache, fever, URI, sore throat, chest pain, palpitations, syncope, cough, shortness of breath, wheeze, dyspnea, abdominal pain, nausea/vomiting/diarrhea, urinary retention, dysuria, hematuria, loss of control of bowel or bladder, numbness/tingling, saddle anesthesia, muscle paralysis/weakness, or rash. - ROS Systems Reviewed and Negative: Yes All other systems reviewed and negative - REPRODUCTIVE Reproductive: DENIES: : Past Medical History - Social History Smoking Status: Unknown if Ever Smoked Family History: Arthritis, CAD, CVA, DM, Hyperlipidemia, Hypertension, Malignancy Pulmonary Medical History: Reports: Hx Bronchitis Denies: Hx Asthma, Hx Pneumonia Renal/ Medical History: Denies: Hx Peritoneal Dialysis - Immunizations Immunizations up to date: Yes Hx Diphtheria, Pertussis, Tetanus Vaccination: Yes - unk date Vertical Provider Document - CONSTITUTIONAL Agree With Documented VS: Yes Notes: PHYSICAL EXAMINATION: GENERAL: Well-appearing, well-nourished and in no acute distress. LUNGS: Breath sounds clear to auscultation bilaterally and equal. No wheezes rales or rhonchi. HEART: Regular rate and rhythm without murmurs, rubs, gallops. Musculoskeletal: Rt Leg/knee: No obvious swelling, ecchymosis, effusion, or deformity. FROM to passive/active and flexion >90 w/o difficulty or tenderness. Strength 5+/5. N/V intact distal. No bony tenderness of the leg or knee. Ligamentous grossly stable, limited exam with larger leg size. Radha grossly negative. Patellar grind negative. No calf tenderness. + tenderness to the IT band right side and the lateral posterior insertions of the hamstring(s). Also exacerbated by stretching the hamstrings. Extremities: No cyanosis, clubbing, or edema b/l. Peripheral pulses 2+. Capillary refill less than 3 seconds. Mati neg b/l. No lower extremity asymmetry. NEUROLOGICAL: Normal speech, normal gait. Normal sensory, motor exams PSYCH: Normal mood, normal affect. SKIN: Warm, Dry, normal turgor, no rashes or lesions noted. - INFECTION CONTROL TRAVEL OUTSIDE OF THE [place] IN LAST 30 DAYS: No Course - Re-evaluation Re-evalutation: 05/02/18 12:49 Patient is an afebrile, well-hydrated, 38-year-old male who presents to the ED with Rt leg pain which I suspect to be a sprain versus strain involving the hamstrings and possible association with the IT band. Vitals are acceptable without any significant tachycardia, tachypnea, or hypoxia. PE is otherwise unremarkable for any neurovascular compromise, obvious tendon/ligament rupture, obvious fracture/dislocation, septic joint. Toradol given IM today. Patient is nontoxic-appearing. Patient is able to ambulate and weight-bear without any limping. No other labs or imaging warranted at this time based on H&P. Conservative measures otherwise for symptoms. Recheck with your PCM in 3-5 days. Consider consult orthopedics. Return to the ED with any worsening/concerning symptoms otherwise as reviewed in discharge. Patient is in agreement. - Vital Signs Vital signs: Temp Pulse Resp BP Pulse Ox 99.1 F 70 16 108/58 L 96 05/02/18 12:24 05/02/18 12:24 05/02/18 12:24 05/02/18 12:24 05/02/18 12:24 Discharge - Discharge Clinical Impression: Leg pain, right Condition: Stable Disposition: HOME, SELF-CARE Additional Instructions: Rest, Ice, Compression, Elevation Tylenol/ibuprofen as needed Light stretches daily Strength exercises as able Moist heat and massage may help F/u with your PCP in 3-5 days for a recheck Consider consult(s) with Orthopedics/physical therapy for ongoing/worsening symptoms Return to the ED with any worsening symptoms and/or development of fever, headache, chest pain, palpitations, syncope, shortness of breath, trouble breathing, abdominal pain, n/v/d, muscle weakness/paralysis, numbness/tingling, swelling, redness, or other worsening symptoms that are concerning to you. Prescriptions: Naproxen 500 mg PO BID #10 tablet Referrals: [facility] [Provider Group] - Follow up as needed
== END 2018-05-02 12:54 | disposition home or self-care (01) ==
LOC: ER 12:20
DX: M79.651 Pain in right thigh (principal)
CPT/HCPCS: 99283; 96372; J1885

== ENCOUNTER 2018-05-17 01:42 | Emergency (ER) | payer SELFPAY ==
[2018-05-17] MEDS ORDERED: MONTELUKAST SODIUM 10 MG TABLET PO ONE (07:05)
[2018-05-17] MEDS ORDERED: IBUPROFEN 600 MG TABLET PO ONE (07:05)
[2018-05-17] MEDS ORDERED: CETIRIZINE 10 MG TABLET PO ONE (07:20)
[2018-05-17] MEDS ORDERED: ACETAMINOPHEN 325 MG TABLET PO ONE (07:23)
--- NOTE | 2018-05-17 07:40 | ER Document Report ---
Addendum entered and electronically signed by DAISY KOHLI FNP 05/17/18 08:20: Discharge - Discharge Clinical Impression: Upper respiratory infection, viral Condition: Stable Disposition: HOME, SELF-CARE Instructions: Sore Throat ([facility]), Upper Respiratory Illness ([facility]), Viral Syndrome ([facility]) Additional Instructions: You were seen today in the emergency department for a sore throat, cough, heada raffaele, and difficulty breathing. You have an upper respiratory viral infection. Viral infections can last 7-10 days. You can take 600 mg of ibuprofen and 1000 mg of acetaminophen every 6 hours as needed for body aches, headache, and fever. You have also been given Zyrtec, medication to help with your symptoms. You may take 1 tablet every day while you have your symptoms. Please follow-up with your primary care provider in regards to this visit. If you develop shortness of breath, difficulty breathing, or have any symptoms that are worrisome to you, please return to the emergency department. Prescriptions: Cetirizine HCl [Zyrtec] 10 mg PO DAILY #30 capsule Forms: Return to Work Original Note: HPI - HPI Time Seen by Provider: 05/17/18 06:38 Pain Level: 1 Context: Patient is a 38-year-old male who presents emergency department with a chief complaint of a cough, sore throat, chest pains when he coughs, headache, and difficulty breathing. He states he generally does not feel well. He states that his symptoms started 2 days ago. He is unsure of whether or not he had a fever or not. 2 days ago he took some [id number]-gnhnmbh headache medication, but had little relief. He has not taken any ibuprofen or Tylenol. He denies any past medical history. - EENT EENT: REPORTS: Sore Throat, Nasal Drainage-Clear, Congestion. DENIES: Ear Pain, Nasal Drainage-Purulent - NEURO Neurology: REPORTS: Headache - CARDIOVASCULAR Cardiovascular: REPORTS: Chest pain - hurts when pt coughs - RESPIRATORY Respiratory: REPORTS: Coughing - GASTROINTESTINAL Gastrointestinal: DENIES: Nausea, Patient vomiting, Diarrhea - REPRODUCTIVE Reproductive: DENIES: : - DERM Skin Color: Normal Skin Problems: None Past Medical History - General Information source: Patient - Social History Smoking Status: Current Some Day Smoker Family History: Arthritis, CAD, CVA, DM, Hyperlipidemia, Hypertension, Malignancy Patient has suicidal ideation: No Patient has homicidal ideation: No Pulmonary Medical History: Reports: Hx Bronchitis Denies: Hx Asthma, Hx Pneumonia Renal/ Medical History: Denies: Hx Peritoneal Dialysis - Immunizations Immunizations up to date: Yes Hx Diphtheria, Pertussis, Tetanus Vaccination: Yes - unk date Vertical Provider Document - CONSTITUTIONAL Exam Limitations: No Limitations - INFECTION CONTROL TRAVEL OUTSIDE OF THE [place] IN LAST 30 DAYS: No - HEENT HEENT: Atraumatic, Normocephalic, PERRLA, Pharyngeal Exudate, Pharyngeal Tenderness, Pharyngeal Erythema. negative: Tympanic Membrane Red, Tympanic Membrane Bulging - NECK Neck: Normal Inspection - RESPIRATORY Respiratory: Breath Sounds Normal, No Respiratory Distress - CARDIOVASCULAR Cardiovascular: Regular Rate, Regular Rhythm Pulses: Normal: Radial - GI/ABDOMEN Gastrointestinal: Abdomen Soft - MUSCULOSKELETAL/EXTREMETIES Musculoskeletal/Extremeties: FROM - NEURO Level of Consciousness: Awake, Alert, Appropriate Motor/Sensory: No Motor Deficit, No Sensory Deficit - DERM Integumentary: Warm, Dry Course - Re-evaluation Re-evalutation: 05/17/18 07:15 Differential diagnosis includes upper respiratory viral infection, pharyngitis, strep pharyngitis. A rapid strep will be done. 05/17/18 08:15 Patient's rapid strep is negative. I suspect patient has an upper respiratory viral infection. He will be sent home with Tylenol and ibuprofen instructions. He also be sent with Zyrtec. Verbal discharge instructions were given to the patient. They verbalized understanding. They are stable for discharge. - Vital Signs Vital signs: Temp Pulse Resp BP Pulse Ox 98.1 F 64 16 117/65 100 05/17/18 06:19 05/17/18 06:19 05/17/18 06:19 05/17/18 06:19 05/17/18 06:19 Discharge - Discharge Clinical Impression: Upper respiratory infection, viral Condition: Stable Disposition: HOME, SELF-CARE Instructions: Sore Throat ([facility]), Upper Respiratory Illness ([facility]), Viral Syndrome ([facility]) Additional Instructions: You were seen today in the emergency department for a sore throat, cough, headache, and difficulty breathing. You have an upper respiratory viral infection. Viral infections can last 7-10 days. You can take 600 mg of ibuprofen and 1000 mg of acetaminophen every 6 hours as needed for body aches, headache, and fever. You have also been given Zyrtec, medication to help with your symptoms. You may take 1 tablet every day while you have your symptoms. Please follow-up with your primary care provider in regards to this visit. If you develop shortness of breath, difficulty breathing, or have any symptoms that are worrisome to you, please return to the emergency department. Prescriptions: Cetirizine HCl [Zyrtec] 10 mg PO DAILY #30 capsule
[2018-05-17 09:06] VITALS: BP 116/58
== END 2018-05-17 08:40 | disposition home or self-care (01) ==
LOC: ER 01:42
DX: J06.9 Acute upper respiratory infection, unspecified (principal); B34.9 Viral infection, unspecified; R07.9 Chest pain, unspecified; R51 Headache; R06.00 Dyspnea, unspecified; F17.200 Nicotine dependence, unspecified, uncomplicated
CPT/HCPCS: 87070; 87880; 99283

== ENCOUNTER 2018-08-04 15:26 | Emergency (ER) | payer SELFPAY ==
[2018-08-04 15:35] VITALS: BP 121/68
--- NOTE | 2018-08-04 16:28 | ER Document Report ---
HPI - HPI Patient complains to provider of: nodule to neck Time Seen by Provider: 08/04/18 16:22 Quality of pain: No pain Pain Level: Denies Context: Patient states that he noticed a lump to the side of his neck several weeks ago after shaving. Patient states that initially he had a very full cheung and when he shaved he noticed this lump there. Patient states that he was seen 2 weeks ago in [place] and had a CT scan performed and they told him that they thought it may be an abscess. Patient states that they did attempt an incision and drainage procedure and placed him on antibiotics. Patient has been off the antibiotics for the past week. Patient denies any increased pain or swelling. Patient states that he would like to know what is causing the lump to the side of his neck. Patient also states he noticed a white spot on his left tonsil. Patient denies any sore throat or fever. Associated Symptoms: denies: Fever, Nausea, Vomiting, Sore throat Exacerbated by: Denies Relieved by: Denies Similar symptoms previously: No Recently seen / treated by doctor: Yes - ROS ROS below otherwise negative: Yes Systems Reviewed and Negative: Yes All other systems reviewed and negative - CONSTITUTIONAL Constitutional: DENIES: Fever, Chills - EENT EENT: DENIES: Sore Throat Notes: White area to the left tonsil, nodule to the left side of neck - RESPIRATORY Respiratory: DENIES: Trouble Breathing, Coughing - GASTROINTESTINAL Gastrointestinal: DENIES: Nausea, Patient vomiting, Diarrhea - DERM Skin Color: Normal Past Medical History - General Information source: Patient - Social History Smoking Status: Current Every Day Smoker Frequency of alcohol use: None Drug Abuse: None Occupation: Construction Family History: Arthritis, CAD, CVA, DM, Hyperlipidemia, Hypertension, Malignancy - Medical History Medical History: Negative Pulmonary Medical History: Reports: Hx Bronchitis Denies: Hx Asthma, Hx Pneumonia Renal/ Medical History: Denies: Hx Peritoneal Dialysis Surgical Hx: Negative - Immunizations Immunizations up to date: Yes Hx Diphtheria, Pertussis, Tetanus Vaccination: Yes - unk date Vertical Provider Document - CONSTITUTIONAL Agree With Documented VS: Yes Exam Limitations: No Limitations General Appearance: WD/WN, No Apparent Distress - INFECTION CONTROL TRAVEL OUTSIDE OF THE [place] IN LAST 30 DAYS: No - HEENT HEENT: Atraumatic, Normocephalic, Pharyngeal Exudate - White rounded area noted to the left tonsil. negative: Pharyngeal Tenderness, Pharyngeal Erythema - NECK Neck: Supple, Thyroid Normal, Other - Patient with mobile nodular lesion to the left side of neck, no surrounding erythema. negative: Lymphadenopathy-Left, Lymphadenopathy-Right - RESPIRATORY Respiratory: Breath Sounds Normal, No Respiratory Distress - CARDIOVASCULAR Cardiovascular: Regular Rate, Regular Rhythm, No Murmur - BACK Back: Normal Inspection - MUSCULOSKELETAL/EXTREMETIES Musculoskeletal/Extremeties: MAEW - NEURO Level of Consciousness: Awake, Alert, Appropriate Motor/Sensory: No Motor Deficit - DERM Integumentary: Warm, Dry. negative: Abscess Course - Re-evaluation Re-evalutation: 08/04/18 16:28 Patient has what appears to be a tonsillolith noted to the left tonsil although provider was unable to gently express this with palpation of a cotton swab applicator 08/04/18 17:32 Throat culture is pending at this time. Patient with likely cystic lesion versus lymph node noted on ultrasound today. Patient encouraged to follow-up with ENT for further evaluation of nodular skin lesion as well evaluation of tonsils. No tonsillar abscess, no potential airway compromise. - Vital Signs Vital signs: Temp Pulse Resp BP Pulse Ox 98.1 F 73 121/68 97 08/04/18 15:34 08/04/18 15:34 08/04/18 15:34 08/04/18 15:34 - Laboratory Laboratory results interpreted by me: 08/04/18 17:32 Labs- Entire Visit 08/04/18 16:20 Group A Strep Rapid NEGATIVE - Diagnostic Test Radiology reviewed: Reports reviewed Discharge - Discharge Clinical Impression: Tonsillar exudate, Nodule of neck Condition: Stable Disposition: HOME, SELF-CARE Instructions: Growth or Mass, Pending Workup ([facility]), Clindamycin ([facility]) Additional Instructions: Return immediately for any new or worsening symptoms Followup with your primary care provider, call tomorrow to make a followup appointment Throat culture is pending at this time Follow-up with ENT, ear nose and throat doctor for further evaluation of white area on tonsil as well as nodular lesion of the neck. Prescriptions: Clindamycin HCl [Cleocin Hcl] 300 mg PO QID #28 capsule Forms: Return to Work, Smoking Cessation Education Referrals: [facility] [Provider Group] - Follow up tomorrow
--- NOTE | 2018-08-04 17:07 | RADIOLOGY REPORT (SQ) ---
EXAM DESCRIPTION: U/S THYROID/SFT TISS HD NECK COMPLETED DATE/TIME: 08/04/2018 4:48 pm REASON FOR STUDY: nodular lesion to left side of neck COMPARISON: None. TECHNIQUE: Dynamic and static rodriges-scale images acquired of the thyroid gland. Selected additional c olor/power Doppler images recorded. All images stored to PACS. LIMITATIONS: None. FINDINGS: RIGHT LOBE: Normal size. Homogeneous echotexture. No cystic or solid masses. LEFT LOBE: Normal size. Homogeneous echotexture. No cystic or solid masses. ISTHMUS: Normal size. Homogeneous echotexture. No cystic or solid masses. OTHER: In the area the patient's lump which is labeled superior medial to the left lobe of the thyroi d gland is a nonspecific 1.6 x 1.9 x 0.9 circumscribed oval hypoechoic lesion with no internal vascul arity. This may be located within the dome subcutaneous although not definitive on this exam. IMPRESSION: 1. Normal ultrasound thyroid. 2. Nonspecific hypoechoic lesion in the area the patient's palpable abnormality superior and medial t o the left lobe of the thyroid gland. Differential considerations include abnormal lymph node, sebac eous cyst/epidermal inclusion cyst, amongst other etiologies. TECHNICAL DOCUMENTATION: JOB ID: [id number] [employer]- All Rights Reserved Reading location - IP/workstation name: [email or web address]
== END 2018-08-04 17:48 | disposition home or self-care (01) ==
LOC: ER 15:26
DX: R22.1 Localized swelling, mass and lump, neck (principal); J03.90 Acute tonsillitis, unspecified; F17.200 Nicotine dependence, unspecified, uncomplicated
CPT/HCPCS: 76536; 87070; 87880; 99283

== ENCOUNTER 2018-08-28 08:27 | Day surgery (SDC) | payer OTHER ==
[~2018-08-28 08:27] MED LIST: ACETAMINOPHEN 1,000 MG/100 ML RTUPB IV ONE; DEXAMETHASONE SOD PHOS INJ 10 MG/1 ML VIAL ONE; FENTANYL CITRATE INJ/PF 100 MCG/2 ML AMPUL ONE; MIDAZOLAM 2 MG/2 ML INJ ONE; ONDANSETRON HCL INJ/PF 4 MG/2 ML SDV ONE; PROPOFOL INJ 200 MG/20 ML VIAL IV ONE; SUCCINYLCHOLINE CHLORIDE INJ 200 MG/10 ML VIAL ONE
[2018-08-28] MEDS ORDERED: OXYMETAZOLINE HCL 0.05% NASAL SPRAY 15 ML BOTTLE ONE (09:31)
[2018-08-28] MEDS ORDERED: LIDOCAINE 2%/EPINEPHRINE INJ 1.7 ML CARTRIDGE ONE (09:32)
--- NOTE | 2018-08-28 12:09 | [facility] OPERATIVE REPORT E ---
[facility] Operative Report NAME: MARLENE SOLIS AGE: 38Y DATE OF SURGERY: 08/28/2018 ROOM: HISTORY: A 38-year-old male who presents with a history of chronic tonsillitis and left neck mass, presents today for an excision of the left neck mass and a tonsillectomy. Informed consent was obtained from the patient. PREOPERATIVE DIAGNOSIS: 1. LEFT NECK MASS. 2. CHRONIC TONSILLITIS. POSTOPERATIVE DIAGNOSIS: 1. LEFT NECK MASS. 2. CHRONIC TONSILLITIS. OPERATION: 1. Excision of left neck mass measuring 2 cm in diameter. 2. Tonsillectomy. SURGEON: FANI CAPELLAN MD ANESTHESIA: General by endotracheal intubation. PROCEDURE: After receiving informed consent from the patient, he was taken to the operating room and placed supine on the operating room table. After successful induction and intubation by Anesthesia, the neck was turned towards the right and extended with a shoulder roll. The planned excision site was marked with a marking pen and then infiltrated 2% Xylocaine and 1:100,000 epinephrine. Patient was then prepped and draped in sterile fashion. A 15 blade was used to make an incision down through subcutaneous tissue. Actually, an ellipse of skin was incorporated in this incision over the suspected puncta of the underlying epidermal inclusion cyst. Next, using blunt and sharp dissection, the mass was removed from the surrounding tissues. It appeared to be an epidermal occlusion cyst. Hemostasis was obtained with bipolar electrocautery. The wound was irrigated with copious amounts of normal saline. No bleeding was noted. The wound was then closed, the dermal layer was closed with 5-0 Monocryl, Dermabond, Mastisol, and Steri-Strips and a pressure dressing was then applied. The patient was then turned 90 degrees and placed in Trendelenburg. Shoulder roll place, head rest place, and McIvor mouth gag inserted atraumatically into the oral cavity. This was then opened up. The soft palate was palpated and found to be normal. Red catheters were inserted down each nasal cavity and brought out to elevate the soft palate. The right tonsil was grasped with a tonsil tenaculum and pulled medially, dissected free from the tonsillar fossa using Bovie electrocautery. Hemostasis obtained with suction Bovie electrocautery. A similar procedure was done on the left side. Both tonsils were removed. Tonsils were about 2+ in size. Next, the oral cavity and oropharynx were irrigated with copious amounts of normal saline. No bleeding was noted. An orogastric tube inserted into the stomach and gastric contents were aspirated. The McIvor mouth gag was then let down and reopened. No bleeding was noted. This along with the red catheters were removed from the patient. The patient was given back to Anesthesia and successfully extubated the patient without any complications. The estimated blood loss is about 5 mL. Fluids were 300 mL of crystalloid. The patient was then transferred to the Post Anesthesia Care Unit in stable condition with spontaneous respirations and no complications. DICTATING PHYSICIAN: FANI CAPELLAN M.D. [id number] PHY#: [id number] ID: [id number] JOB#: [id number] ACCT: [id number] cc:FANI CAPELLAN MD > MTDD
== END 2018-08-28 12:28 | disposition home or self-care (01) ==
LOC: SC 08:27
PROVIDERS: ATTEND Otolaryngology
DX: R22.0 Localized swelling, mass and lump, head (principal); L27.0 Generalized skin eruption due to drugs and medicaments taken internally; F17.210 Nicotine dependence, cigarettes, uncomplicated; J35.01 Chronic tonsillitis
CPT/HCPCS: 00170; 42826; 21555; J2250; J3490 ×2; J3010; J0330; J2405; J2704; J1100; J0131; 170

== ENCOUNTER 2018-12-12 08:57 | Emergency (ER) | payer OTHER ==
--- NOTE | 2018-12-12 09:29 | ER Document Report ---
ED Medical Screen (RME) - General Chief Complaint: Abdominal Pain Stated Complaint: ABDOMINAL PAIN Time Seen by Provider: 12/12/18 09:29 Primary Care Provider: BOONE CRAMER [NO LOCAL MD] - Follow up as needed TRAVEL OUTSIDE OF THE [place] IN LAST 30 DAYS: No - HPI Notes: 12/12/18 09:35 38-year-old male to the emergency department with complaints of left-sided upper abdominal and left flank pain that began suddenly this morning upon waking up. States that he has significant pain in his upper abdomen and back. He denies history of kidney stones. He does have dark-colored urine here in the emergency department. He denies any fevers, chills, vomiting, diarrhea. Last bowel movement was normal and this morning. On basic exam he has tenderness to palpation to the left upper quadrant and positive left CVA tenderness. I performed a medical screening exam and is determined that patient will need further evaluation by main side provider. I have ordered initial labs and harini ging as well as medicines to aid in patient's treatment plan today. - Related Data Allergies/Adverse Reactions: cephalexin monohydrate [From [facility]] Allergy (Unknown, Verified 05/02/18 12:22) acetaminophen [From [facility]] Allergy (Verified 05/02/18 12:22) [facility] [address] [place] [address]] Allergy (Verified 05/02/18 12:22) dextromethorphan HBr [From [facility]] Allergy (Verified 05/02/18 12:22) Past Medical History - Social History Frequency of alcohol use: None Drug Abuse: None Pulmonary Medical History: Reports: Hx Bronchitis Denies: Hx Asthma, Hx Pneumonia Renal/ Medical History: Denies: Hx Peritoneal Dialysis Past Surgical History: Reports: Hx Tonsillectomy - Immunizations Immunizations up to date: Yes Hx Diphtheria, Pertussis, Tetanus Vaccination: Yes - unk date Physical Exam - Vital signs Vitals: Temp Pulse Resp BP Pulse Ox 98.3 F 57 L 20 120/79 98 12/12/18 09:01 12/12/18 09:01 12/12/18 09:01 12/12/18 09:01 12/12/18 09:01 Course - Vital Signs Vital signs: Temp Pulse Resp BP Pulse Ox 98.3 F 57 L 20 120/79 98 12/12/18 09:01 12/12/18 09:01 12/12/18 09:01 12/12/18 09:01 12/12/18 09:01 Doctor's Discharge - Discharge Referrals: SHOAIB,NO [NO LOCAL MD] - Follow up as needed
[2018-12-12] MEDS ORDERED: KETOROLAC TROMETHAMINE INJ/PF 30 MG/1 ML SDV IV ONE (09:34)
[2018-12-12] MEDS ORDERED: ONDANSETRON HCL INJ/PF 4 MG/2 ML SDV IV ONE (09:34)
[2018-12-12] MEDS ORDERED: NORMAL SALINE 1000 ML 1,000 ML IV ONE (09:34)
[2018-12-12 09:54] LABS: AMORPHOUS SEDIMENT,URINE TRACE /HPF; APPEARANCE,URINE CLOUDY; BILIRUBIN,URINE NEGATIVE (NEGATIVE); COLOR,URINE BROWN; GLUCOSE, URINE NEGATIVE (NEGATIVE); KETONES,URINE NEGATIVE (NEGATIVE); LEUKOCYTE ESTERASE,URINE NEGATIVE (NEGATIVE); NITRITE,URINE NEGATIVE (NEGATIVE); PROTEIN,URINE 30 mg/dL (NEGATIVE); URINE SPECIFIC GRAVITY 1.019
[2018-12-12 10:08] LABS: ABSOLUTE BASOPHILS # (AUTO) 0.1 10^3/uL (0.0-0.2); ABSOLUTE EOSINOPHILS # (AUTO) 0.3 10^3/uL (0.0-0.6); ABSOLUTE LYMPHOCYTES (AUTO) 1.5 10^3/uL (0.5-4.7); ABSOLUTE MONOCYTES (AUTO) 0.7 10^3/uL (0.1-1.4); BASOPHILS % (AUTO) 1.1 % (0-2); EOSINOPHILS % (AUTO) 4.4 % (0-6); HEMATOCRIT 46.6 % (37.9-51.0); HEMOGLOBIN 15.6 g/dL (13.5-17.0); LYMPHOCYTES % (AUTO) 19.4 % (13-45); MEAN CORPUSCULAR HEMOGLOBIN 29.7 pg (27.0-33.4); MEAN CORPUSCULAR HGB CONC 33.4 g/dL (32.0-36.0); MEAN CORPUSCULAR VOLUME 89 fl (80-97); MONOCYTES % (AUTO) 9.4 % (3-13); PLATELET COUNT 259 10^3/uL (150-450); RED BLOOD COUNT 5.25 10^6/uL (4.35-5.55); RED CELL DISTRIBUTION WIDTH 13.5 % (11.5-14.0); SEGMENTED NEUTROPHILS % (AUTO) 65.7 % (42-78); TOTAL CELLS COUNTED % (AUTO) 100 %; WHITE BLOOD COUNT 7.6 10^3/uL (4.0-10.5)
--- NOTE | 2018-12-12 10:17 | RADIOLOGY REPORT (SQ) ---
EXAM DESCRIPTION: CT ABD/PELVIS NO ORAL OR IV COMPLETED DATE/TIME: 12/12/2018 10:05 am REASON FOR STUDY: left flank pain, eval stone COMPARISON: None. TECHNIQUE: CT scan of the abdomen and pelvis performed without intravenous or oral contrast. Images reviewed with lung, soft tissue, and bone windows. Reconstructed coronal and sagittal MPR images revi ewed. All images stored on PACS. All CT scanners at this facility use dose modulation, iterative reconstruction, and/or weight based d osing when appropriate to reduce radiation dose to as low as reasonably achievable (ALARA). [facility]: Dose Right [facility]: CareDose [facility]: Dose Right [facility]: Teradose 4D [facility]: [employer] RADIATION DOSE: CT Rad equipment meets quality standard of care and radiation dose reduction techniq ues were employed. CTDIvol: 5.0 mGy. DLP: 272 mGy-cm.mGy. LIMITATIONS: None. FINDINGS: LOWER CHEST: No significant findings. No nodules or infiltrates. NON-CONTRASTED LIVER, SPLEEN, ADRENALS: Evaluation limited by lack of IV contrast. No identified sign ificant masses. PANCREAS: No masses. No peripancreatic inflammatory changes. GALLBLADDER: No identified stones by CT criteria. No inflammatory changes to suggest cholecystitis. RIGHT KIDNEY AND URETER: No suspicious masses. Assessment limited by lack of IV contrast. No signif icant calcifications. No hydronephrosis or hydroureter. LEFT KIDNEY AND URETER: No suspicious masses. Assessment limited by lack of IV contrast. There is a 3 mm obstructive calculus of the mid left ureter with mild associated hydronephrosis and hydroureter . There is an additional nonobstructive calculus of the superior pole of the left kidney. AORTA AND RETROPERITONEUM: No aneurysm. No retroperitoneal masses or adenopathy. BOWEL AND PERITONEAL CAVITY: No obvious masses or inflammatory changes. No free fluid. APPENDIX: Normal. PELVIS, BLADDER, AND ABDOMINAL WALL:No abnormal masses. No free fluid. Bladder normal. BONES: No significant findings. OTHER: No other significant finding. IMPRESSION: There is a 3 mm obstructive calculus of the mid left ureter with mild associated hydrone phrosis and hydroureter. There is an additional nonobstructive calculus of the superior pole of the l eft kidney. COMMENT: Quality ID # [id number]: Final reports with documentation of one or more dose reduction techniques (e.g., Automated exposure control, adjustment of the mA and/or kV according to patient size, use of iterative reconstruction technique) TECHNICAL DOCUMENTATION: JOB ID: [id number] [employer]- All Rights Reserved Reading location - IP/workstation name: [email or web address]
[2018-12-12 10:25] LABS: ALBUMIN 4.4 g/dL (3.5-5.0); ALKALINE PHOSPHATASE 72 U/L (38-126); ANION GAP 6 (5-19); ASPARTATE AMINO TRANSFERASE 22 U/L (17-59); BILIRUBIN,TOTAL 0.6 mg/dL (0.2-1.3); BLOOD UREA NITROGEN 14 mg/dL (7-20); CALCIUM 9.3 mg/dL (8.4-10.2); CARBON DIOXIDE 30 mmol/L (22-30); CHLORIDE 102 mmol/L (98-107); GLUCOSE 101 mg/dL (75-110); POTASSIUM 4.3 mmol/L (3.6-5.0); TOTAL PROTEIN 7.1 g/dL (6.3-8.2)
[2018-12-12] MEDS ORDERED: TAMSULOSIN HCL 0.4 MG CAP.SR.24H PO ONE (10:49)
--- NOTE | 2018-12-12 11:02 | ER Document Report ---
ED General - General Chief Complaint: Abdominal Pain Stated Complaint: ABDOMINAL PAIN Time Seen by Provider: 12/12/18 09:29 Primary Care Provider: BOONE CRAMER [NO LOCAL MD] - Follow up as needed TRAVEL OUTSIDE OF THE [place] IN LAST 30 DAYS: No - HPI Notes: Patient is a 38-year-old male who presents emergency department for evaluation of left-sided abdominal pain. It began this morning while he was sleeping. He states it was worsened with position, nothing seems to make it better. He denied any fever or chills. No nausea or vomiting. Normal bowel movements. He denies any urinary symptoms. He never had any pain similar to this in the past. He describes the intensity as colicky in nature, but states it has been constant since onset. - Related Data Allergies/Adverse Reactions: cephalexin monohydrate [From Scaled Inference] Allergy (Unknown, Verified 05/02/18 12:22) acetaminophen [From Animail] Allergy (Verified 05/02/18 12:22) chlorpheniramine [From [facility]] Allergy (Verified 05/02/18 12:22) dextromethorphan HBr [From [facility]] Allergy (Verified 05/02/18 12:22) Past Medical History - General Information source: Patient - Social History Smoking Status: Current Every Day Smoker Frequency of alcohol use: None Drug Abuse: None Family History: Arthritis, CAD, CVA, DM, Hyperlipidemia, Hypertension, Mal ignancy Patient has suicidal ideation: No Patient has homicidal ideation: No Pulmonary Medical History: Reports: Hx Bronchitis Denies: Hx Asthma, Hx Pneumonia Renal/ Medical History: Denies: Hx Peritoneal Dialysis Past Surgical History: Reports: Hx Tonsillectomy - Immunizations Immunizations up to date: Yes Hx Diphtheria, Pertussis, Tetanus Vaccination: Yes - unk date Review of Systems - Review of Systems Constitutional: No symptoms reported EENT: No symptoms reported Cardiovascular: No symptoms reported Respiratory: No symptoms reported Gastrointestinal: See HPI Genitourinary: No symptoms reported Male Genitourinary: No symptoms reported Musculoskeletal: No symptoms reported Skin: No symptoms reported Neurological/Psychological: No symptoms reported Physical Exam - Vital signs Vitals: Temp Pulse Resp BP Pulse Ox 98.3 F 57 L 20 120/79 98 12/12/18 09:01 12/12/18 09:01 12/12/18 09:01 12/12/18 09:01 12/12/18 09:01 - Notes Notes: Vital signs reviewed, please refer to chart. Head is normocephalic, atraumatic. Pupils equal round, reactive to light. Neck is supple without meningismus. Heart is regular rate and rhythm. Lungs are clear to auscultation bilaterally. Abdomen is soft, nontender, normoactive bowel sounds throughout. Mild left- sided CVA tenderness noted. Extremities without cyanosis, clubbing. Posterior calves are nontender. Peripheral pulses are equal. Skin is warm and dry. Patient is awake, alert, neurological exam is nonfocal. Course - Re-evaluation Re-evalutation: 12/12/18 10:59 Patient presents to the emergency department for evaluation. He had rapid medical evaluation performed and orders placed as noted. Patient had significant relief of his symptoms with the Toradol and IV fluids. Laboratory investigations revealed hematuria, and CT scan revealed obstructive left ureteral stone. Given its size he is likely to pass this without difficulty. He is given a dose of Flomax here. We will send him home with Flomax, pain medicine, nausea medication. He is to follow-up with primary care, return to the ED with worsening or new concerning symptoms of any sort. - Vital Signs Vital signs: Temp Pulse Resp BP Pulse Ox 98.3 F 57 L 20 120/79 98 12/12/18 09:01 12/12/18 09:01 12/12/18 09:01 12/12/18 09:01 12/12/18 09:01 - Laboratory Result Diagrams: 12/12/18 09:45 12/12/18 09:45 Laboratory results interpreted by me: 12/12/18 12/12/18 09:30 09:45 Lipase 17.7 L Urine Protein 30 H Urine Blood LARGE H Urine Urobilinogen 2.0 H Urine Ascorbic Acid 20 H - Diagnostic Test Radiology reviewed: Reports reviewed Radiology results interpreted by me: 12/12/18 10:59 Abdomen/Pelvis CT 12/12/18 09:34 IMPRESSION: There is a 3 mm obstructive calculus of the mid left ureter with mild associated hydronephrosis and hydroureter. There is an additional nonobstructive calculus of the superior pole of the left kidney. Discharge - Discharge Clinical Impression: Ureteral stone with hydronephrosis Condition: Stable Disposition: HOME, SELF-CARE Instructions: Kidney Stone ([facility]) Additional Instructions: Rest, stay well-hydrated. Take medications as prescribed, being sure to take Flomax daily until your pain is entirely resolved. Follow-up with primary care next week. If you develop fevers, uncontrolled vomiting, or any other new or c oncerning symptoms, return immediately to the emergency department for reevaluation. Referrals: LOCALMD,NO [NO LOCAL MD] - Follow up as needed
[2018-12-12 11:13] VITALS: BP 119/72
== END 2018-12-12 11:23 | disposition home or self-care (01) ==
LOC: ER 08:57
DX: N13.2 Hydronephrosis with renal and ureteral calculous obstruction (principal); R10.9 Unspecified abdominal pain; F17.200 Nicotine dependence, unspecified, uncomplicated; Z88.3 Allergy status to other anti-infective agents
CPT/HCPCS: 99284; 96361; 96374; 96375; 36415; 83690; 85025; 80053; 81001; 74176; J1885; J2405; J7030